=== PATIENT | female | born 1950 | race Caucasian/White ===

== ENCOUNTER 2016-04-21 07:09 | Emergency (ER) | payer OTHER ==
[2016-04-21 07:18] VITALS: BP 134/76; PULSE 67; RESP 16; TEMP 97; O2SAT 95
[2016-04-21 07:36] LABS: COLOR YELLOW; LEUKOCYTE ESTERASE,URINE 1+ (NEGATIVE); NITRITE,URINE NEGATIVE (NEGATIVE); PH,URINE 6.5 (5.0-7.5)
[2016-04-21 07:46] LABS: BACTERIA 2+ /hpf (NONE SEEN); MUCUS 1+ /lpf (NONE-1+)
--- NOTE | 2016-04-21 07:55 | UCPHY ---
H & P Time Seen by Provider: 04/21/16 07:20 Patient Type: Established HPI/ROS: 66-year-old female presents with 4 weeks of intermittent dysuria, no fevers no chills no back pain no vomiting. No prior history of urinary tract infection. Review of systems As per HPI General no fever no chills no weakness HEENT no eye pain no eye discharge. No eye redness, no sore throat Respiratory no cough, no shortness of breath Cardiac no chest pain, no peripheral edema GI no abdominal pain, no diarrhea, no constipation, no nausea, no vomiting no flank pain, no hematuria, positive dysuria Musculoskeletal no myalgias, no joint pain Heme no easy bruising, no easy bleeding Endo no polyuria, no polydipsia Skin no rashes, no pruritus Neuro no syncope, no dizziness, no headaches Psych is no suicidal ideation, no homicidal ideation Past Medical/Surgical History: Noncontributory Social History: Works as an RN in [employer] Smoking Status: Never smoked Physical Exam: Female alert and oriented in no acute distress nontoxic appearance, afebrile Atraumatic normocephalic Neck supple Lungs clear to auscultation bilaterally Heart regular rate and rhythm Abdomen normoactive bowel sounds soft mild suprapubic tenderness no guarding no rebound Back no CVA tenderness Extremities no cyanosis clubbing or edema Skin no rash Constitutional: Initial Vital Signs Temperature (C) 36.1 C 04/21/16 07:12 Heart Rate 67 04/21/16 07:12 Respiratory Rate 16 04/21/16 07:12 Blood Pressure 134/76 H 04/21/16 07:12 O2 Sat (%) 95 04/21/16 07:12 O2 Delivery Mode Room Air Allergies/Adverse Reactions: No Known Allergies Allergy (Verified 04/21/16 07:11) Home Medications: Medication Instructions Recorded Cephalexin 500 mg PO BID #14 tablet 04/21/16 Phenazopyridine HCl 200 mg PO TID #6 tab 04/21/16 [Phenazopyridine] Medical Decision Making ED Course/Re-evaluation: Patient seen and evaluated for dysuria Urinalysis consistent with UTI Physical exam benign Impression UTI Plan Cephalexin Phenazopyridine Follow-up PCP Cultures pending - Data Points Laboratory Results: 04/21/16 07:25 Urine Color YELLOW Urine Appearance CLEAR Urine pH 6.5 (5.0-7.5) Ur Specific [place] 1.015 (1.002-1.030) Urine Protein NEGATIVE (NEGATIVE) Urine Ketones NEGATIVE (NEGATIVE) Urine Blood TRACE H (NEGATIVE) Urine Nitrate NEGATIVE (NEGATIVE) Urine Bilirubin NEGATIVE (NEGATIVE) Urine Urobilinogen 0.2 EU (0.2-1.0) Ur Leukocyte Esterase 1+ H (NEGATIVE) Urine RBC 1-3 /hpf (0-3) Urine WBC 10-15 H /hpf (0-3) Ur Epithelial Cells TRACE /lpf (NONE-1+) Urine Bacteria 2+ H /hpf (NONE SEEN) Urine Mucus 1+ /lpf (NONE-1+) Ur Culture Indicated? INDICATED H (NI) Urine Glucose NEGATIVE (NEGATIVE) Departure - Departure Disposition: Home, Routine, Self-Care Clinical Impression: Urinary tract infection Instructions: Urinary Tract Infection in Women (ED) Referrals: NONE *PRIMARY CARE P,. [Primary Care Provider] - As per Instructions Prescriptions: Cephalexin 500 mg PO BID #14 tablet Phenazopyridine HCl [Phenazopyridine] 200 mg PO TID #6 tab - PQRS PQRS Measurement: 134: Depression screening and followup, PRIME MD-PHQ2 (12 years and older) Over the last 2 weeks, how often have you been bothered by any of the following problems? 1. Feeling down, depressed, or hopeless? 2. Little interest or pleasure in doing things? Patient answered no to both 1 and 2 130: Documentation of medications. Reviewed all patient medications, doses, route and frequency. 226: Do you smoke? No. 47: 65 and older: Advanced care planning. Patient designates surrogate decision maker as spouse.. [Patient has advanced directive.] 51: 18 years old and older with diagnosis of COPD, spirometry performance. [Patient has no history of COPD 52: 18 years old and older with COPD and symptoms of COPD or FEV1<60% predicted prescribed a B Agonist. [Spirometry not performed; equipment not available.]
== END 2016-04-21 08:17 | disposition home or self-care (01) ==
LOC: CED 07:09
DX: N39.0 Urinary tract infection, site not specified (principal)
CPT/HCPCS: 81003-PO; 81015-PO; 99214-PO; G0463-PO

== ENCOUNTER → 2016-09-19 | Outpatient (CLI) | payer OTHER | LOC: FIMAGING 15:35 | PROVIDERS: ATTEND Family Medicine | DX: Z12.31 Encounter for screening mammogram for malignant neoplasm of breast (principal) | CPT/HCPCS: G0202 ==